=== PATIENT | male | born 1935 | race African-American/Black ===

== ENCOUNTER 2017-03-20 06:16 | Day surgery (SDC) | payer MEDICARE, MEDICAID ==
[~2017-03-20] VITALS: Ht 172.7 cm; Wt 86.4 kg
[2017-03-20] VITALS (8 sets, daily range): BP systolic 141–180; BP diastolic 69–93; PULSE 71–100; RESP 18–20; TEMP 97.9–98.3; O2SAT 88–98
[~2017-03-20 06:16] MED LIST: ATEN-102 PO; BICA50 PO; CEPH500C3 PO; CHLO25TA24 PO; FOLI1 PO; IMOD2TAB PO; NAME5TAB2 PO; NORC7.5T PO; OSCA200T PO; POLY17S PO; POTA20IN3 PO; REME15TA PO; RIVA10 PO
[2017-03-20] MEDS ORDERED: SODIUM CHLOR 0.9% 1000 ML INJ 1,000 ML IV SCH (06:45)
[2017-03-20] MEDS ORDERED: PRED5TAB PO (06:45)
[2017-03-20] MEDS ORDERED: POTA-163 PO (06:45)
[2017-03-20] MEDS ORDERED: ABIR500T PO (06:45)
[2017-03-20] MEDS ORDERED: CALC1TAB87 PO (06:45)
[2017-03-20 07:16] LABS: AUTOMATED NEUTROPHIL # 8.3 TH/MM3 (1.8-7.7); BASOPHIL % 0.3 % (0.0-2.0); EOSINOPHIL # 0.1 TH/MM3 (0-0.4); EOSINOPHIL % 0.5 % (0.0-4.0); HEMATOCRIT 37.1 % (39.0-51.0); HEMOGLOBIN 12.3 GM/DL (13.0-17.0); LYMPH % 6.1 % (9.0-44.0); LYMPHOCYTE # 0.6 TH/MM3 (1.0-4.8); MEAN CELL VOLUME 89.5 FL (80.0-100.0); MEAN CORPUSCULAR HEMOGLOBIN 29.7 PG (27.0-34.0); MEAN CORPUSCULAR HGB CONC 33.1 % (32.0-36.0); MEAN PLATELET VOLUME 8.3 FL (7.0-11.0); MONO % 6.7 % (0.0-8.0); MONOCYTE # 0.6 TH/MM3 (0-0.9); NEUT % 86.4 % (16.0-70.0); PLATELET COUNT 270 TH/MM3 (150-450); RED BLOOD COUNT 4.14 MIL/MM3 (4.50-5.90); RED CELL DISTRIBUTION WIDTH 12.4 % (11.6-17.2); WHITE BLOOD COUNT 9.6 TH/MM3 (4.0-11.0)
[2017-03-20 07:17] LABS: PROTHROMBIN TIME - PATIENT 10.5 SEC (9.8-11.6)
[2017-03-20] MEDS ORDERED: MIDAZOLAM HCL 2 MG/2 ML VIAL ONE (07:56)
[2017-03-20] MEDS ORDERED: LIDOCAINE HCL 1% 20 ML VIAL ONE (08:08)
--- NOTE | 2017-03-20 08:55 | PD.RAD ---
Post CT Procedure Prog Note Pre Procedure Diagnosis: (1) Mass of left lung Post Procedure Diagnosis: (1) Mass of left lung Procedure Date: Mar 20, 2017 Supervising Radiologist: Dominik Strange Anesthesia: Local, Conscious Sedation Plan of Activity Patient to Unit: [facility] Patient Condition: Good See PACS Report for procedural detail/treatment Biopsy Imaging Guidance: CT Side: Left Biopsy Procedure: Lung Specimen: Core Biopsy Dominik Strange MD Mar 20, 2017 08:55
[2017-03-20] MEDS ORDERED: oxyCODONE/ACETAMINOPHEN 5 MG/325 MG TAB PO PRN (09:00)
--- NOTE | 2017-03-20 09:43 | RADRPT ---
EXAM DATE/TIME: 03/20/2017 09:03 [facility] COMPARISON: No previous studies available for comparison. INDICATIONS : Post left lung biopsy MEDICAL HISTORY : Hypertension. Metastatic, pancreas. SURGICAL HISTORY : None. ENCOUNTER: Initial ACUITY: 1 day PAIN SCORE: 0/10 LOCATION: Left chest FINDINGS: Moderate-sized left pleural effusion with associated airspace disease in the left lower lobe. No defi nitive pneumothorax. The biopsied lesion in the left lung is not well demonstrated on radiograph. Rig ht lung is clear. Extensive sclerosis involving the left humeral head and inferior scapula. CONCLUSION: 1. No significant pneumothorax. 2. Moderate size left pleural effusion with left lower lobe airspace disease. 3. Suspected metastatic disease to the left humerus and scapula. Cas Valentine MD on March 20, 2017 at 9:39 Board Certified Radiologist. This report was verified electronically.
--- NOTE | 2017-03-20 10:09 | RADRPT ---
EXAM DATE/TIME: 03/20/2017 08:32 [facility] COMPARISON: CHEST EXPIRATION ONLY, March 20, 2017, 9:03. INDICATIONS : Left lung mass. SEDATION TIME: 30 minutes BIOPSY SITE: Left MEDICATION(S): 1.) 2 mg midazolam (Versed) IV 2.) 100 mcg fentanyl (Sublimaze) IV DEVICE(S): 1.) 18 gauge Temno core biopsy needle MEDICAL HISTORY : Carcinoma, prostate. Hypertension. SURGICAL HISTORY : Hip surgery ENCOUNTER: Initial ACUITY: 1 day PAIN SCORE: 0/10 LOCATION: Left chest A total of three core specimen(s) were obtained and sent to the laboratory for pathologic evaluation. PROCEDURE: 1. CT guided lung biopsy. 2. Conscious sedation with continuous EKG and oximetry monitoring. 3. EKG and oximetry remained stable throughout the procedure. Prior to the procedure informed consent was obtained. Any appropriate prior imaging studies were rev iewed. Using automated exposure control and adjustment of the mA and/or kV according to patient size, radiation dose was kept as low as reasonably achievable to obtain optimal diagnostic quality images. DICOM format image data is available electronically for review and comparison. The site was prepped in a sterile fashion. Full sterile technique was used, including cap, mask, prince rile gloves and gown and a large sterile sheet. Hand hygiene and 2% chlorhexidine and/or betadine/al cohol prep was utilized per protocol for cutaneous antisepsis. The skin and subcutaneous tissues wer e infiltrated with local anesthetic solution. With CT guidance the previously identified target was localized. Biopsy was performed using the presc ribed needle as above. Adequate hemostasis was obtained with compression at the puncture site. Follow-up CT scan reveals no pneumothorax. Conscious sedation was performed with the prescribed dosages and duration as above in the presence of an independent trained radiology nurse to assist in the monitoring of the patient. EKG and oximetry remained stable throughout the procedure. The patient tolerated the procedure well and there were no complications. The patient was sent to Radiology Outpatient Unit in stable condition. CONCLUSION: Uncomplicated CT guided biopsy. Dominik Strange MD on March 20, 2017 at 10:06 Board Certified Radiologist. This report was verified electronically.
== END 2017-03-20 13:09 | disposition home or self-care (01) ==
LOC: HRAD 06:16 → HRIP 06:21 → HRAD 13:09
PROVIDERS: ATTEND Internal Medicine
DX: R22.2 Localized swelling, mass and lump, trunk (principal); J90 Pleural effusion, not elsewhere classified; C61 Malignant neoplasm of prostate; C79.51 Secondary malignant neoplasm of bone; I10 Essential (primary) hypertension
CPT/HCPCS: 32405; 71010; 77012; 85025; 85610; 85730; 88305; 88341; 88342; J2250; J3010; J7030